=== PATIENT | female | born 1985 | race African-American/Black ===

== ENCOUNTER 2018-05-02 12:26 | Inpatient (IN) | payer OTHER ==
[2018-05-02 13:29] LABS: ADD MAN DIFF? NO
[2018-05-02] MEDS ORDERED: OXYTOCIN 30 UNITS/LR 500 ML IV ×3 (13:30→23:00)
[2018-05-02] MEDS ORDERED: CEFAZOLIN 2 GM/50 ML (PMX) 50 ML IV (13:30)
[2018-05-02] MEDS ORDERED: MISOPROSTOL 200 MCG TAB PR ×2 (13:30→23:00)
[2018-05-02] MEDS ORDERED: CARBOPROST 250 MCG INJ IM ×2 (13:30→23:00)
[2018-05-02] MEDS ORDERED: METHYLERGONOVINE 0.2 MG INJ IM ×2 (13:30→23:00)
[2018-05-02 13:31] LABS: BASOPHILS % 0.2 % (0.0-2.0); EOSINOPHILS # 0.1 10^3/ul (0.0-0.5); EOSINOPHILS % 1.7 % (0.0-7.0); HEMATOCRIT 32.1 % (37.0-47.0); HEMOGLOBIN 10.6 g/dl (12.0-16.0); LYMPHOCYTES % 31.2 % (15.0-51.0); MEAN CORPUSCULAR HEMOGLOBIN 27.7 pg (29.0-33.0); MONOCYTE # 0.5 10^3/ul (0.3-0.9); MONOCYTES % 8.6 % (0.0-11.0); NEUTROPHIL # 3.7 10^3/ul (1.6-7.5); PLATELET COUNT 249 10^3/UL (140-415); RED BLOOD COUNT 3.82 10^6/ul (4.20-5.40); RED CELL DISTRIBUTION WIDTH 16.4 % (11.5-14.5)
[2018-05-02 13:31] LABS: WHITE BLOOD COUNT 6.3 10^3/ul (4.8-10.8)
[2018-05-02 13:57] LABS: INR 1.06; PROTIME 13.9 Sec (11.9-14.9); PT RATIO 1.1
[2018-05-02 13:58] LABS: PARTIAL THROMBOPLASTIN TIME 23.2 Sec (25.0-35.0)
[2018-05-02 15:33] LABS: RAPID PLASMA REAGIN NONREACTIVE (NR)
[2018-05-02] MEDS: AMPICILLIN 2 GM/NS (PMX) 100 ML IV (15:50)
[2018-05-02] MEDS: LACTATED RINGER'S 1,000 ML IV ×2 (15:51→23:00)
[2018-05-02] MEDS ORDERED: EPHEDrine SULFATE 50 MG/5 ML SYG (16:48)
[2018-05-02] MEDS ORDERED: morphine SULFATE/PF (10 MG/10 ML) INJ (16:49)
[2018-05-02] MEDS ORDERED: BUPIVACAINE 0.75%/DEXT (SPINAL) 2 ML INJ (16:49)
[2018-05-02] MEDS ORDERED: ONDANSETRON 4 MG INJ (16:49)
[2018-05-02] MEDS ORDERED: METOCLOPRAMIDE 10 MG INJ (16:49)
[2018-05-02] MEDS ORDERED: OXYTOCIN 10 UNIT INJ ×2 (16:49→17:33)
[2018-05-02] MEDS ORDERED: PHENYLephrine 10 MG INJ (17:25)
[2018-05-02] MEDS: OXYTOCIN 30 UNITS/LR 500 ML IV ×2 (18:27→23:38)
[2018-05-02] MEDS: KETOROLAC 30 MG INJ IV (18:28)
[2018-05-02] MEDS ORDERED: EPHEDrine SULFATE 50 MG/5 ML SYG IV (18:30)
[2018-05-02] MEDS ORDERED: DIPHENHYDRAMINE 50 MG INJ IV (18:30)
[2018-05-02] MEDS ORDERED: NALOXONE (0.4 MG/ML) INJ IV (18:30)
[2018-05-02] MEDS ORDERED: morphine 2 MG INJ IV (18:30)
[2018-05-02] MEDS ORDERED: ONDANSETRON 4 MG INJ IV (18:30)
[2018-05-02] MEDS ORDERED: AMPICILLIN 1 GM/NS (PMX) 50 ML IV (19:00)
[2018-05-02 20:22] LABS: AMPHETAMINE/METHAMPHETAMINE NEGATIVE (NEGATIVE); BARBITURATES NEGATIVE (NEGATIVE); BENZODIAZEPINES NEGATIVE (NEGATIVE); CANNABINOIDS NEGATIVE (NEGATIVE); COCAINE NEGATIVE (NEGATIVE); OPIATES NEGATIVE (NEGATIVE)
[2018-05-02] MEDS: morphine SULFATE/PF (10 MG/10 ML) INJ SPINAL (22:59)
[2018-05-02] MEDS: CEFAZOLIN 1 GM/50 ML (PMX) 50 ML IVPB (23:34)
[2018-05-03 00:08] LABS: HEPATITIS B SURFACE ANTIGEN NEGATIVE (NEGATIVE)
[2018-05-03] MEDS: KETOROLAC 30 MG INJ IV ×2 (01:14→12:03)
[2018-05-03] MEDS: OXYTOCIN 30 UNITS/LR 500 ML IV ×2 (05:09→05:25)
[2018-05-03] MEDS: morphine 2 MG INJ IV (05:16)
[2018-05-03] MEDS: LACTATED RINGER'S 1,000 ML IV ×3 (05:24→21:24)
[2018-05-03 08:23] LABS: ADD MAN DIFF? NO; BASOPHILS % 0.1 % (0.0-2.0); EOSINOPHILS # 0.1 10^3/ul (0.0-0.5); EOSINOPHILS % 1.1 % (0.0-7.0); HEMATOCRIT 30.6 % (37.0-47.0); HEMOGLOBIN 10.1 g/dl (12.0-16.0); LYMPHOCYTES # 1.5 10^3/ul (0.8-2.9); MEAN CORPUSCULAR HEMOGLOBIN 28.2 pg (29.0-33.0); MEAN CORPUSCULAR VOLUME 85.5 fl (82.0-101.0); MEAN PLATELET VOLUME 10.4 fl (7.4-10.4); MONOCYTE # 0.8 10^3/ul (0.3-0.9); MONOCYTES % 10.2 % (0.0-11.0); NEUTROPHIL # 5.5 10^3/ul (1.6-7.5); NEUTROPHILS % 69.2 % (39.0-77.0); PLATELET COUNT 170 10^3/UL (140-415); RED BLOOD COUNT 3.58 10^6/ul (4.20-5.40); RED CELL DISTRIBUTION WIDTH 16.1 % (11.5-14.5)
[2018-05-03 08:23] LABS: WHITE BLOOD COUNT 7.9 10^3/ul (4.8-10.8)
[2018-05-03] MEDS: LANOLIN 7 GM TUBE TOP (09:50)
[2018-05-03] MEDS: SENNA/DOCUSATE NA (8.6MG/50MG) TAB PO ×2 (09:51→21:15)
[2018-05-03] MEDS: OXYCODONE/ACETAMINOPHEN (5/325) TAB PO (17:20)
[2018-05-03] MEDS ORDERED: OXYCODONE/ACETAMINOPHEN (5/325) TAB PO ×3 (17:30→18:30)
[2018-05-03] MEDS ORDERED: HYDROCODONE/APAP (5/325) TAB PO (18:30)
[2018-05-03] MEDS: HYDROCODONE/APAP (5/325) TAB PO (21:16)
[2018-05-04] MEDS: IBUPROFEN 600 MG TAB PO ×4 (00:02→18:04)
[2018-05-04] MEDS: HYDROCODONE/APAP (5/325) TAB PO ×4 (02:42→20:11)
[2018-05-04] MEDS: LACTATED RINGER'S 1,000 ML IV (05:24)
[2018-05-04] MEDS: SENNA/DOCUSATE NA (8.6MG/50MG) TAB PO ×2 (08:45→20:11)
[2018-05-05] MEDS: HYDROCODONE/APAP (5/325) TAB PO ×2 (01:36→04:30)
[2018-05-05] MEDS: IBUPROFEN 600 MG TAB PO ×2 (06:51)
[2018-05-05] MEDS: SENNA/DOCUSATE NA (8.6MG/50MG) TAB PO (09:00)
[2018-05-05] MEDS: DIPHTH/TET/ACEL PERTUSS (ADULT) 0.5 ML VIAL IM* (09:05)
== END 2018-05-05 12:33 | disposition home or self-care (01) | DRG 766 ==
LOC: L-D 12:26 → PP1 21:48
PROVIDERS: Obstetrics & Gynecology
PROC: 10D00Z1 Extraction of Products of Conception, Low, Open Approach (ICD-10-PCS; principal; 2018-05-02 12:30)
DX: O34.219 Maternal care for unspecified type scar from previous cesarean delivery (principal); Z3A.39 39 weeks gestation of pregnancy; Z37.0 Single live birth
CPT/HCPCS: 80307; 85025; 85610; 85730; 86592; 86850; 86900; 86901; 87340; 99464